=== PATIENT | female | born 1965 | race Caucasian/White ===

== ENCOUNTER 2017-06-12 00:25 | Emergency (ER) | payer OTHER ==
[~2017-06-12] VITALS: Ht 175.3 cm; Wt 84.1 kg
[2017-06-12 00:32] VITALS: BP 176/102; PULSE 103; RESP 14; O2SAT 98
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
[2017-06-12] MEDS ORDERED: Ondansetron 2 mg/mL 2 mL Inj IVPUSH PRN (01:15)
[2017-06-12] MEDS ORDERED: HYDROmorphone 0.5 mg/0.5 mL iSecure Syringe IVPUSH PRN (01:15)
[2017-06-12 01:54] LABS: BASOPHILS % (AUTO) 0.4 % (0-3); EOSINOPHILS % (AUTO) 1.4 % (0-5); MONOCYTES % (AUTO) 9.4 % (4-12); Mean Corpuscular Hemoglobin 29.1 pg (27.0-35.0); NEUTROPHILS % (AUTO) 68.3 % (40-74); Platelet Count 297 bil/L (150-400)
[2017-06-12 02:07] VITALS: BP 167/99; PULSE 93; RESP 18; O2SAT 98
[2017-06-12] MEDS ORDERED: _oxyCODONE/APAP 5-325 mg Tablet PO PRN (02:45)
[2017-06-12 03:54] VITALS: BP 148/93; PULSE 94; RESP 13; O2SAT 97
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
== END 2017-06-12 03:56 | disposition home or self-care (01) ==
LOC: SED 00:25
DX: S09.8XXA Other specified injuries of head, initial encounter (principal); R07.89 Other chest pain; M54.2 Cervicalgia; Y00.XXXA Assault by blunt object, initial encounter; Y93.9 Activity, unspecified; Y92.9 Unspecified place or not applicable; Y99.8 Other external cause status; Z88.5 Allergy status to narcotic agent; Z88.6 Allergy status to analgesic agent; Z91.018 Allergy to other foods
CPT/HCPCS: 36415; 70450; 71020; 71250; 72125; 80053; 82075; 85025; 93005; 96374; 96375; 99285; G0480; J1170; J1885; J2405